=== PATIENT | male | born 1965 | race Caucasian/White ===

== ENCOUNTER → 2019-03-11 | Emergency (ER) | payer SELFPAY ==
[2019-03-11] MEDS: DIPHTH/TET/ACEL PERTUSS (ADULT) 0.5 ML VIAL IM* (10:49)
[2019-03-11] MEDS: CEFAZOLIN 1 GM INJ IM (11:06)
== END | disposition home or self-care (01) ==
LOC: FTE 10:15
DX: S61.316A Laceration without foreign body of right little finger with damage to nail, initial encounter (principal); W27.0XXA Contact with workbench tool, initial encounter; Y92.9 Unspecified place or not applicable; Z23 Encounter for immunization
CPT/HCPCS: 12001; 73140; 90471; 90715; 96372; 99284-25